=== PATIENT | female | born 2000 | race Caucasian/White ===

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

== ENCOUNTER 2018-02-08 22:22 | Emergency (ER) | payer BC ==
[2018-02-08 23:58] LABS: ABS Basophils 0.1 10^3/ul (0-0.2); ABS Eosinophils 0 10^3/ul (0-0.6); ABS Lymphocytes 2.7 10^3/ul (1.0-4.8); ABS Monocytes 0.6 10^3/ul (0-0.8); ABS Neutrophils 6.1 10^3/ul (1.5-7.7); ABS Nucleated RBC 0 10^3/ul; Eosinophil % 0.5 % (0-6); Hematocrit 37 % (35-47); Hemoglobin 12.4 g/dl (12.0-16.0); Lymphocyte % 27.9 % (25-47); Mean Corpuscular HGB Conc 34 g/dl (31-36); Mean Corpuscular Hemoglobin 31 pg (27-31); Mean Corpuscular Volume 90 fL (80-97); Mean Platelet Volume 6.8 um3 (7.4-10.4); Nucleated Red Blood Cells % 0; Platelet Count 240 10^3/ul (150-450); Red Blood Count 4.05 10^6/ul (4.00-5.40); Red Cell Distribution Width 12 % (10.5-15); White Blood Count 9.5 10^3/ul (3.5-10.8)
[2018-02-09 01:00] LABS: Urine Appearance Clear; Urine Blood Negative (Negative); Urine Color Yellow; Urine Ketones Negative (Negative); Urine Protein Negative (Negative); Urine Specific Gravity 1.016 (1.010-1.030); Urine Urobilinogen Negative (Negative)
[2018-02-09] MEDS ORDERED: Lidocaine 2% VISCOUS* 15 ML UDC PO ONE (01:16)
[2018-02-09] MEDS ORDERED: Al Hydrox/Mg Hydrox/Simet LIQ* 30 ML UDC PO ONE (01:16)
--- NOTE | 2018-02-09 01:17 | ED ---
GI/ HPI - HPI Summary HPI Summary: 17-year-old female presents with epigastric pain for the past couple days. He states she's been on chronic NSAID use due to frequent concussions. States she noticed some streaking blood in her stool. No dark tarry stool. She was occasional nausea but no vomiting. States her pain is a burning pain. Worse when she eats. It is worse at night. No chest pain or shortness of breath. No pain with urination. No previous belly surgeries. No fevers. She states she's been having looser stools. No vaginal discharge. no family history of ulcers or GI disease. - History of Current Complaint Chief Complaint: EDAbdPain Time Seen by Provider: 02/09/18 00:48 Stated Complaint: ABD PAIN Pain Intensity: 8 - Allergy/Home Medications Allergies/Adverse Reactions: Allergies Allergy/AdvReac Type Severity Reaction Status Date / Time Penicillins Allergy Hives Verified 02/08/18 22:33 Sulfa (Sulfonamide Allergy Hives Verified 02/08/18 22:33 Antibiotics) Home Medications: Home Medications Metoclopramide TAB* [Reglan TAB*] 10 mg PO Q6H PRN 02/08/18 [History Confirmed 02/08/18] Ranitidine HCl (Nf) [Zantac] 75 mg PO DAILY 02/08/18 [History Confirmed 02/08/18 ] PMH/Surg Hx/FS Hx/Imm Hx Endocrine/Hematology History: Denies: Hx Anticoagulant Therapy, Hx Blood Disorders, Hx Unexplained Bleeding Cardiovascular History: Reports: Other Cardiovascular Problems/Disorders - mild murmur w/o need for tx Denies: Hx Hypertension Neurological History: Reports: Other Neuro Impairments/Disorders - Concussion 06/2018 Infectious Disease History: No Infectious Disease History: Denies: Traveled Outside the [place] in Last 30 Days - Family History Known Family History: Negative: Seizure Disorder - Social History Alcohol Use: None Hx Substance Use: No Substance Use Type: Reports: None Hx Tobacco Use: No Smoking Status (MU): Never Smoked Tobacco Review of Systems Negative: Fever Negative: Chest Pain Negative: Shortness Of Breath Positive: Abdominal Pain. Negative: Vomiting, Diarrhea, Nausea All Other Systems Reviewed And Are Negative: Yes Physical Exam Triage Information Reviewed: Yes Vital Signs On Initial Exam: Initial Vitals Temp Pulse Resp BP Pulse Ox 98.9 F 98 15 108/64 99 02/08/18 22:31 02/08/18 22:31 02/08/18 22:31 02/08/18 22:31 02/08/18 22:31 Vital Signs Reviewed: Yes Appearance: Positive: Well-Appearing Skin: Positive: Warm, Dry Head/Face: Positive: Normal Head/Face Inspection Eyes: Positive: Normal, Conjunctiva Clear ENT: Positive: Pharynx normal Respiratory/Lung Sounds: Positive: Clear to Auscultation, Breath Sounds Present Cardiovascular: Positive: Normal, RRR Abdomen Description: Positive: Soft, Other: - tenderness epigastric pain, neg wilson test Bowel Sounds: Positive: Present Musculoskeletal: Positive: Normal Neurological: Positive: Normal Psychiatric: Positive: Normal Diagnostics - Vital Signs Vital Signs Temp Pulse Resp BP Pulse Ox 02/08/18 22:31 98.9 F 98 15 108/64 99 - Laboratory Lab Results: Lab Results 02/08/18 02/08/18 02/09/18 Range/Units 23:41 23:41 00:50 WBC 9.5 (3.5-10.8) 10^3/ul RBC 4.05 (4.00-5.40) 10^6/ul Hgb 12.4 (12.0-16.0) g/dl Hct 37 (35-47) % MCV 90 (80-97) fL MCH 31 (27-31) pg MCHC 34 (31-36) g/dl RDW 12 (10.5-15) % Plt Count 240 (150-450) 10^3/ul MPV 6.8 L (7.4-10.4) um3 Neut % (Auto) 64.1 (38-83) % Lymph % (Auto) 27.9 (25-47) % Clare % (Auto) 6.8 (0-7) % Eos % (Auto) 0.5 (0-6) % Baso % (Auto) 0.7 (0-2) % Absolute Neuts (auto) 6.1 (1.5-7.7) 10^3/ul Absolute Lymphs (auto) 2.7 (1.0-4.8) 10^3/ul Absolute Monos (auto) 0.6 (0-0.8) 10^3/ul Absolute Eos (auto) 0 (0-0.6) 10^3/ul Absolute Basos (auto) 0.1 (0-0.2) 10^3/ul Absolute Nucleated RBC 0 10^3/ul Nucleated RBC % 0 Sodium 140 (135-145) mmol/L Potassium 3.6 (3.5-5.0) mmol/L Chloride 103 (101-111) mmol/L Carbon Dioxide 28 (22-32) mmol/L Anion Gap 9 (2-11) mmol/L BUN 12 (6-24) mg/dL Creatinine 0.76 (0.51-0.95) mg/dL Est GFR ( Amer) 118.6 (>60) Est GFR (Non-Af Amer) 98.0 (>60) BUN/Creatinine Ratio 15.8 (8-20) Glucose 136 H (70-100) mg/dL Calcium 9.5 (8.6-10.3) mg/dL Total Bilirubin 0.60 (0.2-1.0) mg/dL AST 18 (13-39) U/L ALT 12 (7-52) U/L Alkaline Phosphatase 52 (34-104) U/L C-Reactive Protein < 1.00 (<8.01) mg/L Total Protein 7.3 (6.4-8.9) g/dL Albumin 4.8 (3.2-5.2) g/dL Globulin 2.5 (2-4) g/dL Albumin/Globulin Ratio 1.9 (1-3) Lipase 16 (11.0-82.0) U/L Beta HCG, Quant < 0.60 mIU/mL Urine Color Yellow Urine Appearance Clear Urine pH 5.0 (5-9) Ur Specific Wallace 1.016 (1.010-1.030) Urine Protein Negative (Negative) Urine Ketones Negative (Negative) Urine Blood Negative (Negative) Urine Nitrate Negative (Negative) Urine Bilirubin Negative (Negative) Urine Urobilinogen Negative (Negative) Ur Leukocyte Esterase Negative (Negative) Urine Glucose Negative (Negative) Result Diagrams: 02/08/18 23:41 02/08/18 23:41 Lab Statement: Any lab studies that have been ordered have been reviewed, and results considered in the medical decision making process. GIGU Course/Dx - Course Course Of Treatment: 17-year-old female presents with epigastric pain for the past couple days. He states she's been on chronic NSAID use due to frequent concussions. States she noticed some streaking blood in her stool. No dark tarry stool. She was occasional nausea but no vomiting. States her pain is a burning pain. Worse when she eats. It is worse at night. No chest pain or shortness of breath. No pain with urination. No previous belly surgeries. No fevers. She states she's been having looser stools. No vaginal discharge. no family history of ulcers or GI disease. on exam has tenderness epigastric. Negative Wilson's. Labs within normal limits. Gave GI cocktail feeling a little bit better. will prescribe omeprazole and given GI referral. Warned of signs return to ED for. Patient understands agrees with plan. - Diagnoses Differential Diagnoses - Female: Cholelithiasis, Gastritis, Gerd Provider Diagnoses: Epigastric pain Discharge - Sign-Out/Discharge Documenting (check all that apply): Discharge/Admit/Transfer - Discharge Plan Condition: Good Disposition: HOME Prescriptions: Omeprazole CAP* [Prilosec CAP* 20 MG] 20 mg PO DAILY #14 cap. Patient Education Materials: Gastritis (ED), Diet for Stomach Ulcers and Gastritis (ED) Referrals: [facility] - Shahram TILLMAN [Primary Care Provider] - Marcel Haile MD [Medical Doctor] - Additional Instructions: symptoms likely due to gastritis Take omeprazole once a day for 14 days Avoid acidic foods Elevated head of bed Stay upright for at least 30 mins after eating take Tylenol very 6 hours as needed for pain, avoid NSAIDs Follow up with GI Return to ED if develop fever, severe nausea and vomiting or any new or worsening symptoms - Billing Disposition and Condition Condition: GOOD Disposition: Home
[2018-02-09 01:28] VITALS: BP 129/90
== END 2018-02-09 01:34 | disposition home or self-care (01) ==
LOC: ED 22:22
DX: R10.13 Epigastric pain (principal); Z88.0 Allergy status to penicillin
CPT/HCPCS: 36415; 80053; 81003; 83690; 84702; 85025; 86140; 99282

== ENCOUNTER 2018-02-11 22:50 | Emergency (ER) | payer BC ==
--- NOTE | 2018-02-11 23:33 | ED ---
Back Pain - HPI Summary HPI Summary: Patient is a 17-year-old female presenting to the ED with mid back pain which started yesterday. Denies any known injury. She states she was seen here 3 days ago for gastritis symptoms she has been on NSAIDs for several weeks to months. She began the medication omeprazole and states the symptoms have somewhat improved. She is also taking Mylanta. Symptoms began yesterday which is just to the right side of the spine to the mid back. Pain is an 8/10 and constant. She denies any worsening pain with movement or palpation. She has not done anything for the discomfort. Vital signs are stable on arrival. She denies any urinary symptoms. - History of Current Complaint Chief Complaint: EDBackInjuryPain Stated Complaint: ABD AND BACK PAIN Time Seen by Provider: 02/11/18 22:58 Hx Obtained From: Patient Onset/Duration: Gradual Onset Onset/Duration: Started Hours Ago Timing: Constant Back Pain Location: Is Discrete @ - right sided back pain Severity Initially: Moderate Severity Currently: Moderate Pain Intensity: 8 Pain Scale Used: 0-10 Numeric Character: Aching Alleviating Symptom(s): Rest, Position Associated Signs And Symptoms: Positive: Negative - Risk Factors AAA Risk Factors: Negative TAD Risk Factors: Negative Cauda Equina Risk Factors: Negative Epidural Abscess Risk Factors: Negative - Allergies/Home Medications Allergies/Adverse Reactions: Allergies Allergy/AdvReac Type Severity Reaction Status Date / Time Penicillins Allergy Hives Verified 02/08/18 22:33 Sulfa (Sulfonamide Allergy Hives Verified 02/08/18 22:33 Antibiotics) PMH/Surg Hx/FS Hx/Imm Hx Previously Healthy: Yes Endocrine/Hematology History: Denies: Hx Anticoagulant Therapy, Hx Blood Disorders, Hx Unexplained Bleeding Cardiovascular History: Reports: Other Cardiovascular Problems/Disorders - mild murmur w/o need for tx Denies: Hx Hypertension Neurological History: Reports: Other Neuro Impairments/Disorders - Concussion 06/2018 - Immunization History Date of Tetanus Vaccine: utd Date of Influenza Vaccine: fall 2016 Hx Pertussis Vaccination: No Immunizations Up to Date: Unable to Obtain/Confirm Infectious Disease History: No Infectious Disease History: Denies: Traveled Outside the [place] in Last 30 Days - Family History Known Family History: Negative: Seizure Disorder - Social History Occupation: Unemployed Lives: Dormitory/Roommates Alcohol Use: None Hx Substance Use: No Substance Use Type: Reports: None Hx Tobacco Use: No Smoking Status (MU): Never Smoked Tobacco Review of Systems Constitutional: Negative Negative: Fever, Chills, Fatigue, Skin Diaphoresis Negative: Palpitations, Chest Pain Negative: Shortness Of Breath, Cough Genitourinary: Negative Positive: no symptoms reported, see HPI Positive: Arthralgia. Negative: Myalgia Negative: Rash, Bruising Neurological: Negative Psychological: Normal All Other Systems Reviewed And Are Negative: Yes Physical Exam Triage Information Reviewed: Yes Vital Signs On Initial Exam: Initial Vitals Temp Pulse Resp BP Pulse Ox 97.9 F 94 16 121/70 100 02/11/18 22:53 02/11/18 22:53 02/11/18 22:53 02/11/18 22:53 02/11/18 22:53 Vital Signs Reviewed: Yes Appearance: Positive: No Pain Distress Skin: Positive: Skin Color Reflects Adequate Perfusion Head/Face: Positive: Normal Head/Face Inspection Eyes: Positive: EOMI, ABNER, Conjunctiva Clear Neck: Positive: Supple, No Lymphadenopathy Respiratory/Lung Sounds: Positive: Clear to Auscultation, Breath Sounds Present Cardiovascular: Positive: RRR, Pulses are Symmetrical in both Upper and Lower Extremities Musculoskeletal: Positive: Strength/ROM Intact, Other - no pain on direct palpation of the spine throughout Neurological: Positive: Sensory/Motor Intact, Speech Normal Psychiatric: Positive: Normal, Affect/Mood Appropriate AVPU Assessment: Alert Diagnostics - Vital Signs Vital Signs Temp Pulse Resp BP Pulse Ox 02/11/18 22:53 97.9 F 94 16 121/70 100 - Laboratory Lab Statement: Any lab studies that have been ordered have been reviewed, and results considered in the medical decision making process. Back Pain Course/Dx - Course Course Of Treatment: During the course of treatment, the patient is evaluated for pain just to the right side of the back. Denies any urinary symptoms. UA obtained which shows no acute findings. This is likely Muscular pain. This was explained to the patient. She will apply heat to the area and stretches are given. She is to remain taking the omeprazole and avoiding the ibuprofen. She is okay with this plan at this time. - Diagnoses Differential Diagnosis/HQI/PQRI: Positive: Strain, Sprain Provider Diagnoses: Muscle spasm Discharge - Sign-Out/Discharge Documenting (check all that apply): Discharge/Admit/Transfer - Discharge Plan Condition: Stable Disposition: HOME Patient Education Materials: Lower Back Exercises (ED) Referrals: Toshia SWARTZ,Yvonne Day [Primary Care Provider] - Additional Instructions: Heat to the area warm baths massage Stretches - Billing Disposition and Condition Condition: STABLE Disposition: Home
[2018-02-11 23:35] LABS: Urine Appearance Clear; Urine Blood Negative (Negative); Urine Color Straw; Urine Ketones Negative (Negative); Urine Protein Negative (Negative); Urine Specific Gravity 1.008 (1.010-1.030); Urine Urobilinogen Negative (Negative)
[2018-02-12 00:15] VITALS: BP 118/69
== END 2018-02-12 00:14 | disposition home or self-care (01) ==
LOC: ED 22:50
DX: M62.838 Other muscle spasm (principal); Z88.0 Allergy status to penicillin
CPT/HCPCS: 81003; 99282

== ENCOUNTER 2018-10-29 12:42 | Emergency (ER) | payer BC, OTHER ==
--- NOTE | 2018-10-29 13:37 | ED ---
Abdominal Pain/Female - HPI Summary HPI Summary: Pt is a 18 y/o F presenting to the ED with a chief complaint of abd pain onset this morning. She states she got an IUD placed about 6 days ago and got her period yesterday as scheduled, but she woke up this morning with very heavy bleeding and abnormally intense cramping. She had a test prior to the IUD being placed, and it was negative, and she has never been . She reports nausea associated with the pain. 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 - History of Current Complaint Chief Complaint: EDAbdPain Stated Complaint: IUD PLACED TWO WEEKS AGO HAVING PAIN Time Seen by Provider: 10/29/18 13:06 Hx Obtained From: Patient Hx Last Menstrual Period: 10/28/2018 ?: No Onset/Duration: Sudden Onset, Lasting Hours, Still Present Timing: Hours Severity Initially: Severe Severity Currently: Severe Pain Intensity: 8 Pain Scale Used: 0-10 Numeric Location: Suprapubic Radiates: No Character: Cramping Aggravating Factor(s): Movement Alleviating Factor(s): Nothing Associated Signs and Symptoms: Positive: Vaginal Bleeding, Nausea Allergies/Adverse Reactions: Allergies Allergy/AdvReac Type Severity Reaction Status Date / Time Penicillins Allergy Hives Verified 02/08/18 22:33 Sulfa (Sulfonamide Allergy Hives Verified 02/08/18 22:33 Antibiotics) PMH/Surg Hx/FS Hx/Imm Hx Previously Healthy: Yes Endocrine/Hematology History: Denies: Hx Anticoagulant Therapy, Hx Blood Disorders, Hx Unexplained Bleeding Cardiovascular History: Reports: Other Cardiovascular Problems/Disorders - mild murmur w/o need for tx Denies: Hx Hypertension Neurological History: Reports: Other Neuro Impairments/Disorders - Concussion 06/2018 - Immunization History Date of Tetanus Vaccine: utd Date of Influenza Vaccine: fall 2016 Infectious Disease History: No Infectious Disease History: Denies: Traveled Outside the [place] in Last 30 Days - Family History Known Family History: Negative: Seizure Disorder - Social History Alcohol Use: None Hx Substance Use: No Substance Use Type: Reports: None Hx Tobacco Use: No Smoking Status (MU): Never Smoked Tobacco Review of Systems Negative: Fever Positive: Abdominal Pain, Nausea Positive: other - heavy vaginal bleeding All Other Systems Reviewed And Are Negative: Yes Physical Exam - Summary Physical Exam Summary: GENERAL: Patient is a well-developed and nourished female who is lying on the stretcher. She appears uncomfortable secondary to pain. Patient is not in any acute respiratory distress. HEAD AND FACE: Normocephalic EYES: PERRLA, EOMI x 2. EARS: Hearing grossly intact. MOUTH: Oropharynx within normal limits. NECK: Supple, trachea is midline, no adenopathy, no JVD, no carotid bruit. CHEST: Symmetric, no tenderness at palpation LUNGS: Clear to auscultation bilaterally. No wheezing or crackles. CVS: Regular rate and rhythm, S1 and S2 present, no murmurs or gallops appreciated. ABDOMEN: Soft, non-tender. Bowel sounds are normal. No abdominal abnormal pulsations. EXTREMITIES: Full ROM in all major joints, no edema, no cyanosis or clubbing. NEURO: Alert and oriented x 3. No acute neurological deficits. Speech is normal and follows commands. SKIN: Dry and warm Triage Information Reviewed: Yes Vital Signs On Initial Exam: Initial Vitals Temp Pulse Resp BP Pulse Ox 98.8 F 73 16 131/90 99 10/29/18 12:48 10/29/18 12:48 10/29/18 12:48 10/29/18 12:48 10/29/18 12:48 Vital Signs Reviewed: Yes Diagnostics - Vital Signs Vital Signs Temp Pulse Resp BP Pulse Ox 10/29/18 12:48 98.8 F 73 16 131/90 99 - Laboratory Result Diagrams: 10/29/18 13:42 Lab Statement: Any lab studies that have been ordered have been reviewed, and results considered in the medical decision making process. - Ultrasound No standard instances Ultrasound Interpretation Completed By: Radiologist Summary of Ultrasound Findings: US Pelvis. 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 ED physician has reviewed this report. Re-Evaluation - Re-Evaluation 1st re-eval Re-Evaluation Time: 14:54 Change: Unchanged Comment: I discussed the results of the ultrasound with the patient. She is still in pain as of now, but agrees to see her carbonation tester in the morning to discuss further solutions. Abdominal Pain Fem Course/Dx - Course Course Of Treatment: Pt is a 18 y/o F presenting to the ED with a chief complaint of abd pain onset this morning. She had the Mirena IUD placed six days ago and woke up this morning with severe cramping and vaginal bleeding. She reports nausea associated with the pain. A pelvic US shows IUD appearing to be low within the uterus likely due to bicornuate uterus. Her lab results show that she is not . In the ED, the patient received toradol to help with her pain. She will be dx'ed with pelvic pain. I discussed the results with the patient who agrees to follow up with her carbonation tester in the morning. She is hemodynamically stable and safe for discharge. Strict return precautions given and she will otherwise follow up with her drug safety associate and PCP. - Diagnoses Provider Diagnoses: Pelvic pain Discharge - Sign-Out/Discharge Documenting (check all that apply): Patient Departure Patient Received Moderate/Deep Sedation with Procedure: No - Discharge Plan Condition: Stable Disposition: HOME Prescriptions: Ketorolac TAB * [Toradol TAB *] 10 mg PO Q8H #15 tab Referrals: Toshia SWARTZ,Yvonne Day [Primary Care Provider] - Additional Instructions: Please follow up with your carbonation tester in the morning. Also follow up with your primary care physician in the next 1-3 days. Return to the emergency department with any new or worsening symptoms. - Billing Disposition and Condition Condition: STABLE Disposition: Home - Attestation Statements Document Initiated by Brenda: Yes Documenting Scribe: Bonita Farr Provider For Whom Brenda is Documenting (Include Credential): Puja Minor MD. Scribe Attestation: Bonita Chacko, pashaed for Puja Minor MD. on 10/29/18 at 1816. Scribe Documentation Reviewed: Yes Provider Attestation: The documentation as recorded by the Bonita parra accurately reflects the service I personally performed and the decisions made by , Niharika Minor MD. Status of Scribe Document: Viewed
[2018-10-29 13:49] LABS: ABS Basophils 0.1 10^3/ul (0-0.2); ABS Eosinophils 0.2 10^3/ul (0-0.6); ABS Lymphocytes 2.1 10^3/ul (1.0-4.8); ABS Monocytes 0.6 10^3/ul (0-0.8); ABS Neutrophils 6.6 10^3/ul (1.5-7.7); ABS Nucleated RBC 0 10^3/ul; Eosinophil % 2.2 %; Hematocrit 42 % (33-41); Hemoglobin 14.3 g/dL (12.0-16.0); Lymphocyte % 22.3 %; Mean Corpuscular HGB Conc 34 g/dL (31-36); Mean Corpuscular Hemoglobin 30 pg (27-31); Mean Corpuscular Volume 88 fL (80-97); Mean Platelet Volume 7.1 fL (7.4-10.4); Nucleated Red Blood Cells % 0; Platelet Count 257 10^3/uL (150-450); Red Blood Count 4.79 10^6 /uL (3.70-4.87); Red Cell Distribution Width 13 % (10.5-15); White Blood Count 9.6 10^3/uL (3.5-10.8)
[2018-10-29] MEDS ORDERED: Ketorolac INJ* 60 MG/2 ML VIAL IM ONE (14:46)
[2018-10-29] MEDS ORDERED: oxyCODONE/Acetamin 5/325 MG* TAB PO ONE (14:47)
[2018-10-29 14:57] LABS: Urine Appearance Clear; Urine Bacteria 1+ (Absent); Urine Bilirubin Negative (Negative); Urine Blood 2+ (Negative); Urine Color Straw; Urine Glucose Negative (Negative); Urine Ketones Negative (Negative); Urine Nitrite Negative (Negative); Urine Protein Negative (Negative); Urine Red Blood Cell 2+(6-10/hpf) (Absent); Urine Specific Gravity 1.004 (1.010-1.030); Urine Urobilinogen Negative (Negative); Urine White Blood Cell Absent (Absent)
[2018-10-29 16:15] VITALS: BP 111/67
== END 2018-10-29 16:14 | disposition home or self-care (01) ==
LOC: ED 12:42
DX: R10.2 Pelvic and perineal pain (principal); N93.9 Abnormal uterine and vaginal bleeding, unspecified; R11.0 Nausea; Z32.02 Encounter for pregnancy test, result negative; Z97.5 Presence of (intrauterine) contraceptive device; Z88.0 Allergy status to penicillin; Z88.2 Allergy status to sulfonamides
CPT/HCPCS: 36415; 76856; 81003; 81015; 84702; 85025; 86850; 86900; 86901; 87086; 96372; 99282; J1885